=== PATIENT | male | born 1950 | race Caucasian/White ===

== ENCOUNTER 2019-07-07 19:24 | Emergency (ER) | payer MEDICARE, OTHER, SELFPAY ==
[2019-07-07 19:25] VITALS: BP 175/111; PULSE 69; RESP 15; TEMP 36.7; O2SAT 95; BMI 41.2
[2019-07-07] MEDS: Morphine 4 MG/ML Syringe IV ×2 (21:01→23:09)
[2019-07-07 21:14] LABS: Absolute Lymphocyte Count 1.82 X10^3/uL (0.83-4.51); Absolute Neutrophil Count 3.3 X10^3/uL (2.0-7.7); Basophil# 0.04 X10^3/uL; Basophil% 0.7 % (0-1); Eosinophil# 0.26 X10^3/uL; Eosinophils% 4.3 % (0-5); Hematocrit 46.3 % (40-54); Hemoglobin 15.2 g/dL (13.0-16.5); Lymphocyte # 1.82 X10^3/ul (4.0); Mean Corp Hgb Conc 32.8 g/dL (32-36); Mean Corpuscular Hgb 30.8 pg (27.0-32.0); Mean Corpuscular Volume 93.9 fL (80-94); Mean Platelet Vol. 11.4 fl (6.2-12.0); Monocyte# 0.58 X10^3/uL; Monocyte% 9.6 % (0-10); NRBC Flagged by Analyzer 0 % (0-5); Neutrophil # 3.29 X10^3/uL (2.7-7.7); Neutrophil % 54.1 % (47-70); POSITIVE COUNT YES; Platelet Count 97 K/mm3 (150-450); RBC Distribution Width CV 13.4 % (11.6-14.6); RBC Distribution Width SD 46.5 fl (35.1-43.9); Red Blood Count 4.93 M/mm3 (4.6-6.2); White Blood Count 6.1 K/mm3 (4.4-11.0)
[2019-07-07 21:21] LABS: Differential Indicated SCAN CRITERIA MET
[2019-07-07 21:29] LABS: ALB/GLOB Ratio 1.2 RATIO (0.9-2.4); AST(SGOT) 16 U/L (15-37); Alanine Aminotransfer ALT/SGPT 35 U/L (16-61); Albumin, Serum 3.5 g/dL (3.2-5.0); Alkaline Phosphatase 44 U/L (45-117); Anion Gap 5 (5-15); BUN 27 mg/dL (7-18); BUN/Creat Ratio 24.5 RATIO (10-20); Calcium,Total 8.9 mg/dL (8.5-10.1); Chloride 108 mmol/L (98-107); EST Glomerular Filtration Rate 71 mL/min (>60); Est Glom Filt Rate - Afr Amer 86 mL/min (>60); Estimated Creatinine Clearance 71.53 ml/min; Glucose 86 mg/dL (74-106); Potassium 4.2 mmol/L (3.5-5.1); Protein, Total 6.5 g/dL (6.4-8.2); Sodium Level 142 mmol/L (136-145)
--- NOTE | 2019-07-07 21:34 | RAD_ITS ---
STUDY: X-RAY CHEST REASON FOR EXAM: Male, 69 years old. PT IS C/O ANGELIKA ARM PAIN AND WAS PLACED ON GABAPENTIN LAST SUNDAY. TODAY HAS NOTICED SWELLING TO ANGELIKA LE. TECHNIQUE: PA and lateral chest COMPARISON: None. FINDINGS: The lungs are clear and expanded. There is no demonstrated pleural abnormality. There is mild cardiomegaly. There is a cardiac pacemaker. There is mild scattered pulmonary scarring. There is mild right basilar pulmonary opacity. Normal mediastinum and angus. Normal visualized pulmonary arteries. Normal visualized aortic arch and descending thoracic aorta. Normal visualized thoracic spine. Normal visualized ribs, clavicles, and shoulders. There is no demonstrated abnormality of the visualized soft tissue structures of the upper abdomen. RAD/Chest PA and Lateral IMPRESSION: Mild cardiomegaly Cardiac pacemaker Mild scattered pulmonary scarring Mild right basilar pulmonary opacity Electronically Signed: Robin Nation, at 22:11 EST Tel , Service support ,
[2019-07-07 21:41] LABS: Differential Comment SCANNED; Platelet Estimate MOD DEC (ADEQ)
--- NOTE | 2019-07-07 22:40 | US_ITS ---
STUDY: VENOUS DOPPLER ULTRASOUND - BILATERAL LOWER EXTREMITIES REASON FOR EXAM: Male, 69 years old. SWELLING BILAT JUST TODAY GETTING A LITTLE BETTER PER PT TECHNIQUE: Ultrasound evaluation of the deep vein system to include magana-scale imaging and compression was performed. Magana-scale imaging and Doppler sonographic evaluation, including duplex spectral analysis and qualitative color flow sonography, was performed. COMPARISON: None. FINDINGS: RIGHT LEG Common Femoral Vein: Normal compression, spontaneity and augmentation. Normal color Doppler. Common Femoral Vein/Greater Saphenous Junction: Normal compression, spontaneity and augmentation. Normal color Doppler. Femoral Proximal: Normal compression, spontaneity and augmentation. Normal color Doppler. Femoral Middle: Normal compression, spontaneity and augmentation. Normal color Doppler. Femoral Distal: Normal compression, spontaneity and augmentation. Normal color Doppler. Popliteal Vein: Normal compression, spontaneity and augmentation. Normal color Doppler. Posterior Tibial Vein: Normal compression, spontaneity and augmentation. Normal color Doppler. Peroneal Vein: Normal compression, spontaneity and augmentation. Normal color Doppler. LEFT LEG Common Femoral Vein: Normal compression, spontaneity and augmentation. Normal color Doppler. Common Femoral Vein/Greater Saphenous Junction: Normal compression, spontaneity and augmentation. Normal color Doppler. Femoral Proximal: Normal compression, spontaneity and augmentation. Normal color Doppler. Femoral Middle: Normal compression, spontaneity and augmentation. Normal color Doppler. Femoral Distal: Normal compression, spontaneity and augmentation. Normal color Doppler. Popliteal Vein: Normal compression, spontaneity and augmentation. Normal color Doppler. Posterior Tibial Vein: Normal compression, spontaneity and augmentation. Normal color Doppler. Peroneal Vein: Normal compression, spontaneity and augmentation. Normal color Doppler. US/Venous Duplex Imag/Wilber Extrem IMPRESSION: Normal venous Doppler ultrasound of the bilateral lower extremities. No DVT Electronically Signed: Robin Nation, at 23:38 EST Tel , Service support ,
--- NOTE | 2019-07-07 23:31 | ED.VISSUMM ---
- ER Visit Summary Date of Service: 07/07/19 Chief Complaint: Leg edema and right arm pain History of Present Illness: The patient is a 69 M who presents with leg edema that has been getting worse over the past couple days. Patient states that his legs have been swelling in his legs feel tight. Patient also describes his pain is aching. Patient states his pain is worse with stretching. Patient was recently started on gabapentin for his right arm pain. Patient states this has not been helping. Patient states he has an appoint with the [facility] tomorrow for further evaluation of his right arm pain. Patient denies any shortness of breath. Physical Examination: Vital signs are stable except for mildly elevated blood pressure 175/111. Patient is afebrile. Patient is in no acute distress. Oral mucosa is pink and moist. Neck is supple. Trachea is midline. There is no JVD. Heart was regular rate and rhythm. Lungs are clear and equal bilaterally. Abdomen is soft. Bowel sounds are normal. There is no tenderness. Cranial nerves II through XII are intact. There are no focal motor or sensory deficits noted. Extremities are intact. There is 1+ edema of the lower extremities bilaterally. There is some mild calf tenderness bilaterally. Test Results: CBC and comprehensive metabolic profile were within normal limits. Venous duplex of the lower extremities was obtained and was normal. Emergency Department Course and Treatment: Patient was given a dose of morphine here. Patient was still having pain. Patient was given a repeat dose of his morphine. Patient was advised of his findings. Patient was instructed to follow-up with his appointment tomorrow at the [facility]. Patient was instructed to continue his gabapentin as prescribed. Patient understands and is agreeable with the plan. All questions were answered. Disposition: Discharge home Impression: Peripheral edema This note was generated with [employer] dictation software. It may contain incorrect words, spelling, and punctuation that were not noted in review of the chart prior to signing ED Disposition - Plan for ED Patient: Disposition: Home or Assisted Living Diagnosis: Peripheral edema Instructions: ED Peripheral Edema, Bilateral Referrals: [facility] [Primary Care Provider] - Keep Sharmin appointment
[2019-07-07 23:49] VITALS: BP 160/93; PULSE 78; RESP 16; O2SAT 96
== END 2019-07-07 23:54 | disposition home or self-care (01) ==
PROVIDERS: Emergency Provider Emergency Medicine
DX: R60.0 Localized edema (principal); Z72.0 Tobacco use
CPT/HCPCS: 71046; 80053; 85025; 93970; 96374; 96376; 99283; A4216

== ENCOUNTER 2020-09-29 17:53 | Emergency (ER) | payer OTHER, MEDICARE, SELFPAY ==
[2020-09-29 17:54] VITALS: PULSE 89; RESP 18; TEMP 36; O2SAT 96; BMI 40.6
[2020-09-29 18:09] VITALS: BP 169/97
--- NOTE | 2020-09-29 19:46 | EX.ED.GUMALE ---
HPI History of Present Illness Chief Complaint: Complaint Narrative Narrative: Patient presenting for evaluation secondary to acute urinary retention. Patient reports that he was at the [facility] today and had a prostatic biopsy. He states that they sent him home and instructed him to aggressively hydrate. He states that he was drinking large amounts of water but was urinating both blood and clots, and then he developed a inability to urinate. He reports that he developed significant suprapubic pain that was associated with this, so he presented to the emergency department. Patient denies any flank pain or fevers associated with this. Review of systems otherwise negative. [facility] Medical History Heart attack Allergy/AdvReac Type Severity Reaction Status Date / Time No Known Allergies Allergy Verified 07/07/19 20:53 Surgical History Hx of prostate biopsy Stented coronary artery Social History Smoking Status: Former smoker ROS ROS ED Constitutional Constitutional ED: Denies chills or fever(s) ENT ENT ED: Denies sore throat Cardiovascular Cardiovascular: Denies chest pain Respiratory/Chest Respiratory/Chest: Denies cough or dyspnea Gastrointestinal Gastrointestinal: Reports abdominal pain; Denies constipation, diarrhea or nausea Genitourinary Genitourinary ED: Reports hematuria and other Details: Inability to urinate ; Denies dysuria or urinary frequency Musculoskeletal Musculoskeletal: Denies myalgias Integumentary Denies rash Neurologic Neurologic: Denies paresthesias or weakness Psychiatric Psychiatric: Denies depression Endocrine Endocrinology: Denies polyuria Hematologic/Lymphatic Hematologic/Lymphatic: Denies easy bleeding or easy bruising Allergic/Immunologic Allergic/Immunologic ED: Denies urticaria EXAM Physical Exam Const Vital Signs: 09/29/20 17:54 09/29/20 18:09 Temperature 96.8 F L Temperature Source Temporal Pulse Rate 89 Respiratory Rate 18 Blood Pressure 169/97 H Blood Pressure Mean 121 Pulse Ox 96 Oxygen Delivery Method Room Air Positive well nourished and well developed General Appearance ED: well developed and other Uncomfortable but otherwise not in physiologic distress HEENT normocephalic and atraumatic Eyes EOMs intact bilaterally Neck supple Resp normal respiratory effort Cardio regular rate, regular rhythm and no murmurs GI GI Narrative: Suprapubic discomfort, no guarding or rebound Palpation: soft Neuro oriented x3 Sensorium / Orientation: alert Psych mental status grossly normal Skin Lesions: no lesions Rashes: no rashes MDM MDM MDM Narrative Medical decision making narrative: Patient presented secondary to acute urinary retention. Nursing staff placed a Monterroso catheter and immediately the patient produced around a liter of brown/bloody urine. Patient's bladder was irrigated, this was able to be irrigated to a point where it was more pink-colored urine. Patient had significant relief by this. I believe that the patient should go home with a leg bag at this point. I do not feel that the patient requires continuous bladder irrigation at this time, and [facility] Patient was discharged in improved condition. Discharge Plan Triage Chief Complaint: Complaint ED Provider: Damián Berg Dx/Rx/DC Orders Clinical Impression: Acute urinary retention Instructions: ED Urinary Retention, Male [facility] - (Call tomorrow and inform them that you had urinary retention due to bloody urine and required a catheter placement.) Disposition Disposition: Home, self care
== END 2020-09-29 20:18 | disposition home or self-care (01) ==
PROVIDERS: Emergency Provider Emergency Medicine
DX: R33.9 Retention of urine, unspecified (principal); Z87.891 Personal history of nicotine dependence
CPT/HCPCS: 51702; 99283

== ENCOUNTER 2020-10-02 05:34 | Emergency (ER) | payer OTHER, MEDICARE, SELFPAY ==
[2020-10-02 05:34] VITALS: BP 175/89; PULSE 75; RESP 16; TEMP 36; O2SAT 95; BMI 41.5
--- NOTE | 2020-10-02 06:57 | EDS_ITS ---
HPI History of Present Illness Chief Complaint: Complaint Narrative Narrative: 70-year-old male who had a prostate biopsy 3 days ago at the [facility]. This was complicated by urinary retention and had a catheter placed 3 days ago as well. He reports that he has passed a few blood clots from this, but is continue to drain until last evening. Reports that since that time he has not drained any urine at all. He complains of a sharp suprapubic pain is 10-10 at worst and a 10 currently. He denies any flank pain. He denies fever, chills, nausea, vomiting, or diarrhea. [facility] Medical History Heart attack Pacemaker Allergy/AdvReac Type Severity Reaction Status Date / Time No Known Allergies Allergy Verified 10/02/20 05:49 Surgical History Hx of prostate biopsy Stented coronary artery Social History Smoking Status: Former smoker ROS ROS ED Constitutional Constitutional ED: Denies chills, fever(s) or sweats Eyes Eyes: Denies change in vision ENT ENT ED: Denies sore throat Cardiovascular Cardiovascular: Denies chest pain Respiratory/Chest Respiratory/Chest: Denies cough, dyspnea or dyspnea on exertion Gastrointestinal Gastrointestinal: Reports abdominal pain; Denies diarrhea, melena, nausea or vomiting Genitourinary Genitourinary ED: Reports hematuria; Denies dysuria or urinary frequency Musculoskeletal Musculoskeletal: Denies myalgias Integumentary Denies rash Neurologic Neurologic: Denies headache(s), paresthesias or weakness EXAM Physical Exam Const Vital Signs: 10/02/20 05:34 Temperature 96.8 F L Temperature Source Temporal Pulse Rate 75 Respiratory Rate 16 Blood Pressure 175/89 H Blood Pressure Mean 117 Pulse Ox 95 Oxygen Delivery Method Room Air Positive well nourished and well developed General Appearance ED: well developed HEENT Reports normocephalic and head/scalp atraumatic Eyes PERRL Neck no lymphadenopathy, supple and no JVD General: Negative for tenderness Resp normal respiratory effort and clear to auscultation bilaterally Cardio regular rate, regular rhythm and no murmurs GI normal to inspection, nondistended, normoactive bowel sounds and non-tender GI Narrative: No guarding, rebound, or peritoneal signs. Palpation: soft Back/Spine Back/Spine Narrative: Nontender. Extremity General Extremety ED: Negative for edema or tenderness General Extremity: Negative for edema Neuro oriented x3, CN's II-XII intact bilaterally and no sensory deficits noted Sensorium / Orientation: alert Motor Exam: strength 5/5 throughout Psych mental status grossly normal Skin no rashes or lesions noted [facility] Treatment and Re-Evaluation Comments:: Emergency department course: The patient's catheter was irrigated. Multiple small clots were obtained. It is now draining spontaneously and the urine is pink-tinged. He is not on anticoagulants. He is on Plavix. I did discuss with the patient placing an IV and setting off blood work. He does not want this done. States that he has an appointment to see the [facility] in 2 days and that he would prefer that they do the blood work. Treatment plan: Patient Monterroso catheter is now draining without any difficulty. He has been allowed to walk about the emergency department and is no longer having any pain. He is no longer passing clots. He will be discharged instructions to push fluids. Return the emerge department if his catheter stops draining again. Otherwise follow-up with the [facility] in 2 days previously scheduled. Return to the emergency department for any worsening symptoms. Disposition: To home in improved and stable condition. This note was generated with [employer] dictation software. It may contain incorrect words, spelling, and punctuation that were not noted in review of the chart prior to signing. Discharge Plan Triage Chief Complaint: Complaint ED Provider: Armin Solano Dx/Rx/DC Orders Instructions: ED Monterroso Catheter, Care [facility] [Primary [facility] Provider] - 2 Days Disposition Disposition: Home, self care Discharge Date/Time: 10/02/20 06:42
== END 2020-10-02 06:42 | disposition home or self-care (01) ==
PROVIDERS: Emergency Provider Emergency Medicine
DX: T83.098A Other mechanical complication of other urinary catheter, initial encounter (principal); Z87.891 Personal history of nicotine dependence
CPT/HCPCS: 99282

== ENCOUNTER 2020-12-22 14:24 | Emergency (ER) | payer OTHER, MEDICARE, SELFPAY ==
[2020-12-22 14:25] VITALS: BP 149/78; PULSE 79; RESP 18; TEMP 36.4; O2SAT 95; BMI 37.7
--- NOTE | 2020-12-22 14:31 | ED.RN ---
PT DECIDED HE DID NOT WANT TO BE SEEN BY DR SANCHEZ HIS 02 WAS 95%
== END 2020-12-22 14:33 | disposition left against medical advice (07) ==
LOC: ED 14:33
DX: Z53.21 Procedure and treatment not carried out due to patient leaving prior to being seen by health care provider (principal)